=== PATIENT | female | born 2000 | race Caucasian/White ===

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

== ENCOUNTER 2018-01-15 20:17 | Emergency (ER) | payer MEDICAID ==
[~2018-01-15] VITALS: Ht 545.9 cm; Wt 49.0 kg
[~2018-01-15 20:17] MED LIST changes: +MAGN296S50 PO; -MIC100VS VG; +POTA20TA19 PO
[2018-01-15 20:55] LABS: BASOPHILS % (AUTO) 0.6 % (0-1); EOSINOPHILS # (AUTO) 0.1 X10'3 (0-0.9); EOSINOPHILS % (AUTO) 1.6 % (0-6); HEMATOCRIT 33.8 % (35.0-45.0); HEMOGLOBIN 11.5 g/dl (12.0-16.0); LYMPHOCYTES # (AUTO) 1.4 X10'3 (1.1-4.8); LYMPHOCYTES % (AUTO) 17.5 % (21-51); MEAN CORPUSCULAR HEMOGLOBIN 30.3 PG (27.0-31.0); MEAN CORPUSCULAR HGB CONC 34.2 % (33.0-36.5); MEAN CORPUSCULAR VOLUME 88.6 FL (78-98); MEAN PLATELET VOLUME 6.6 FL (7.4-10.4); MONOCYTES # (AUTO) 0.6 X10'3 (0-0.9); NEUTROPHILS % (AUTO) 73.3 % (42-75); PLATELET COUNT 324 X10'3 (140-440); RED BLOOD COUNT 3.81 X10'6 (4.20-5.60); RED CELL DISTRIBUTION WIDTH 13.3 % (11.5-14.5); WHITE BLOOD COUNT 8.1 X10'3 (4.5-11.0)
[2018-01-15] MEDS ORDERED: Permethrin Cream 60gm TP ONE (21:15)
[2018-01-15 21:58] LABS: ALANINE AMINOTRANSFERASE 26 U/L (12-78); ALBUMIN 2.4 G/DL (3.4-5.0); ALBUMIN/GLOBULIN RATIO 0.6 (1.1-1.5); ALKALINE PHOSPHATASE 126 IU/L (20-180); ANION GAP 7 (8-16); ASPARTATE AMINO TRANSFERASE 26 U/L (10-37); BILIRUBIN,TOTAL 0.2 MG/DL (0.1-1.0); BLOOD UREA NITROGEN 13 MG/DL (7-18); BUN/CREATININE RATIO 23.2 (6.6-38.0); CHLORIDE 102 MMOL/L (99-107); CREATININE 0.56 MG/DL (0.40-0.90); GLUCOSE 93 MG/DL (70-104); SODIUM 135 MMOL/L (135-145); TOTAL CARBON DIOXIDE 26.2 MMOL/L (24-32); TOTAL PROTEIN 6.1 G/DL (6.4-8.2); eGFR > 90 ML/MIN
[2018-01-15 22:15] VITALS: BP 121/76
[2018-01-15 22:26] LABS: BETA HCG,QUANTITATIVE 40531 mIU/ml
== END 2018-01-15 22:22 | disposition home or self-care (01) ==
LOC: ER 20:18
DX: O26.892 Other specified pregnancy related conditions, second trimester (principal); R10.32 Left lower quadrant pain; O99.712 Diseases of the skin and subcutaneous tissue complicating pregnancy, second trimester; B85.2 Pediculosis, unspecified; Z3A.24 24 weeks gestation of pregnancy; Z88.1 Allergy status to other antibiotic agents; Z79.899 Other long term (current) drug therapy
CPT/HCPCS: 36415; 80053; 84702; 85025; 99284

== ENCOUNTER 2018-01-30 18:08 | Emergency (ER) | payer MEDICAID ==
[~2018-01-30] VITALS: Ht 157.5 cm; Wt 45.0 kg
[2018-01-30 18:20] VITALS: BP 120/74
== END 2018-01-30 21:25 | disposition home or self-care (01) ==
LOC: ER 18:09
DX: O9A.212 Injury, poisoning and certain other consequences of external causes complicating pregnancy, second trimester (principal); M25.561 Pain in right knee; Z3A.28 28 weeks gestation of pregnancy; Z88.1 Allergy status to other antibiotic agents; Z79.899 Other long term (current) drug therapy; W01.198A Fall on same level from slipping, tripping and stumbling with subsequent striking against other object, initial encounter; Y93.89 Activity, other specified; Y92.89 Other specified places as the place of occurrence of the external cause; Y99.9 Unspecified external cause status
CPT/HCPCS: 99282; A6449

== ENCOUNTER 2021-12-27 21:44 | Emergency (ER) | payer MEDICAID ==
[~2021-12-27] VITALS: Ht 157.5 cm; Wt 54.5 kg
[~2021-12-27 21:44] MED LIST changes: -MAGN296S50 PO; +MAGN296S70 PO; -POTA20TA19 PO
[2021-12-27 22:41] VITALS: BP 120/62
--- NOTE | 2021-12-27 22:42 | NUR ---
CN: Alexander unavaileable for CN Addendum: 12/27/21 at 2243 by [email or web address] extended call waiting on Alexander
[2021-12-27] MEDS ORDERED: AMOX-117 PO (23:03)
== END 2021-12-27 23:49 | disposition home or self-care (01) ==
LOC: ER 21:45
DX: S61.052A Open bite of left thumb without damage to nail, initial encounter (principal); S61.251A Open bite of left index finger without damage to nail, initial encounter; Z88.1 Allergy status to other antibiotic agents; W50.3XXA Accidental bite by another person, initial encounter; Y93.89 Activity, other specified; Y92.89 Other specified places as the place of occurrence of the external cause; Y99.8 Other external cause status
CPT/HCPCS: 73130; 99283